=== PATIENT | female | born 1990 | race Asian ===

== ENCOUNTER 2017-06-10 13:22 | Emergency (ER) | payer OTHER ==
[2017-06-10 13:28] VITALS: BP 115/75
== END 2017-06-10 13:45 | disposition home or self-care (01) ==
LOC: ED 13:22
DX: S01.81XD Laceration without foreign body of other part of head, subsequent encounter (principal); Z88.1 Allergy status to other antibiotic agents; X58.XXXD Exposure to other specified factors, subsequent encounter; Y92.89 Other specified places as the place of occurrence of the external cause; Y99.8 Other external cause status